=== PATIENT | male | born 1955 | race African-American/Black ===

== ENCOUNTER 2016-10-17 17:22 | Emergency (ER) | payer SELFPAY ==
[~2016-10-17] VITALS: Ht 170.2 cm; Wt 65.0 kg
[2016-10-17 17:38] VITALS: BP 145/92
[2016-10-17] MEDS ORDERED: ASPIRIN 81MG TABLET PO ONE (18:00)
== END 2016-10-17 18:58 | disposition home or self-care (01) ==
LOC: ER 18:38
DX: R07.89 Other chest pain (principal); I10 Essential (primary) hypertension; Z85.46 Personal history of malignant neoplasm of prostate; Z96.659 Presence of unspecified artificial knee joint
CPT/HCPCS: 93005; 99283; Z7610